=== PATIENT | female | born 1960 | race Caucasian/White ===

== ENCOUNTER 2022-05-08 10:44 | Emergency (ER) | payer BC ==
--- NOTE | 2022-05-08 11:01 | ED General ---
General Chief Complaint: Facial Problems Stated Complaint: FACIAL SWELLING History of Present Illness Date Seen by Provider: May 08, 2022 Time Seen by Provider: 10:54 Initial Comments 59-year-old female with PMH of known hair dye allergy, is here with complaints of orbital swelling, and cheeks swelling, with prior after putting hair dye in her hair the day before yesterday. Patient took hydroxyzine and Benadryl at home which did not stop the itching. Denies shortness of breath, chest pain, palpitations, nausea and vomiting, abdominal pain, headache. Patient is speaking in clear full sentences and does not show any signs of respiratory distress. Allergies and Home Medications Allergies Coded Allergies: Penicillins (Verified Allergy, Unknown, 05/08/22) amoxicillin (Verified Allergy, Unknown, 05/08/22) codeine (Verified Allergy, Unknown, 05/08/22) hydrocodone (Verified Allergy, Unknown, 05/08/22) levofloxacin (Verified Allergy, Unknown, 05/08/22) oxycodone (Verified Allergy, Unknown, 05/08/22) tetracycline (Verified Allergy, Unknown, 05/08/22) Patient Home Medication List Home Medication List Reviewed: Yes Review of Systems Review of Systems Constitutional: no symptoms reported EENTM: other (Facial swelling) Respiratory: no symptoms reported Cardiovascular: no symptoms reported Gastrointestinal: no symptoms reported Genitourinary: no symptoms reported Musculoskeletal: no symptoms reported Skin: no symptoms reported Psychiatric/Neurological: No Symptoms Reported Hematologic/Lymphatic: No Symptoms Reported Immunological/Allergic: no symptoms reported Past [id number] Hx Patient Social History Tobacco Use?: No Use of E-Cig and/or Vaping dev: Yes E-Cig or Vaping type used: Nicotine Use of E-Cig and/or Vaping Alonso: Current Everyday User Substance use?: No Alcohol Use?: No Pt feels they are or have been: No Immunizations Up To Date First/Initial COVID19 Vaccinat: YES Second COVID19 Vaccination Sreekanth: YES Past Medical History Surgery/Hospitalization HX: Migraines Physical Exam Vital Signs Vital Signs - First Documented 05/08/22 10:47 Temp 36.6 Pulse 84 Resp 16 B/P (MAP) 118/63 (81) Pulse Ox 98 O2 Delivery Room Air Capillary Refill : Height, Weight, BMI Height: '" Weight: lbs. oz. kg; BMI Method: General Appearance: No Apparent Distress, WD/WN HEENT: PERRL/EOMI, Other (Orbital swelling and maxillary swelling bilaterally present) Neck: Full Range of Motion Respiratory: Chest Non Tender, Lungs Clear, Normal Breath Sounds, No Accessory Muscle Use Cardiovascular: Regular Rate, Rhythm Gastrointestinal: Non Tender, Soft Neurologic/Psychiatric: Alert, Oriented x3, No Motor/Sensory Deficits Skin: Normal Color Lymphatic: No Adenopathy Progress/Results/Core Measures Suspected Sepsis SIRS Temperature: Pulse: Respiratory Rate: Blood Pressure / Mean: Results/Orders My Orders Orders - VALENTINO KIMBALL MD Prednisone Tablet (Deltasone Tablet) (05/08/22 11:15) Prednisone Tablet (Deltasone Tablet) (05/08/22 11:15) Vital Signs/I&O 05/08/22 10:47 Temp 36.6 Pulse 84 Resp 16 B/P (MAP) 118/63 (81) Pulse Ox 98 O2 Delivery Room Air Capillary Refill : Progress Note : Progress Note 1. HAIR DYE ALLERGY: - Prednisone 60mg STAT in ER -Patient's vitals are stable and patient is able to speak in clear sentences without any evidence of respiratory compromise. -Advised patient to stop using hair dye since it can cause worsening side effects with each subsequent use. -Prescription for prednisone 50 mg daily for 5 days given -Advised Sarna lotion or calamine lotion as needed for itching -Patient already has an EpiPen and knows how to use it and when to use it. -Follow-up with PCP in the next 3 to 7 days. Also make dermatology appointment for allergy skin testing. -The patient was seen in the ED, and treated appropriately to presentation at a specific point in time. Patient is informed that there is a possibility that disease and illness can evolve and change in acuity rapidly or slowly after patient is discharged from the ER. Precautionary advice given to the patient for immediate return to ER if symptoms worsen or do not resolve, and to seek emergency care sooner rather than later. Pt also advised on the importance of PCP follow up and compliance with management and follow up plan with PCP and/or specialist, as this is part of the management plan. Pt verbally expressed understanding. Departure Impression Primary Impression: Allergy to hair dye Disposition: HOME, SELF-CARE Condition: Stable Departure-Patient Inst. Referrals: NO,LOCAL PHYSICIAN (PCP/Family) Primary Care Physician Patient Instructions: Allergic Reaction ED, Allergy Skin Test, Patch Test, Allergy Skin Testing Add. Discharge Instructions: -Advised patient to stop using hair dye since it can cause worsening side effects with each subsequent use. -Prescription for prednisone 50 mg daily for 5 days given -Advised Sarna lotion or calamine lotion as needed for itching -Patient already has an EpiPen and knows how to use it and when to use it. -Follow-up with PCP in the next 3 to 7 days. Also make dermatology appointment for allergy skin testing. All discharge instructions reviewed with patient and/or family. Voiced understanding. Scripts Menthol/Camphor (Sarna Anti-Itch Lotion) 0.5 %-0.5 % Lotion 222 ML TP Q4H for Itching for 5 Days, #1 EA Prov: VALENTINO KIMBALL MD 05/08/22 Prednisone (Prednisone) 50 Mg Tab 50 MG PO DAILY for 5 Days, #5 TAB Prov: VALENTINO KIMBALL MD 05/08/22 VALENTINO KIMBALL MD May 08, 2022 11:01
[2022-05-08] MEDS ORDERED: predniSONE 20 MG TAB PO ONE ×2 (11:15→11:30)
[2022-05-08] MEDS ORDERED: predniSONE 10 MG TAB PO ONE (11:15)
[2022-05-08] MEDS ORDERED: PRD50T PO (11:21)
[2022-05-08] MEDS ORDERED: MENT222L13 TP (11:21)
[2022-05-08 11:30] VITALS: BP 118/63
== END 2022-05-08 11:30 | disposition home or self-care (01) ==
LOC: EDUNIT# 10:44 → ER FS 10:47
DX: R22.0 Localized swelling, mass and lump, head (principal); L29.9 Pruritus, unspecified; T49.4X5A Adverse effect of keratolytics, keratoplastics, and other hair treatment drugs and preparations, initial encounter; F17.290 Nicotine dependence, other tobacco product, uncomplicated
CPT/HCPCS: 99283